=== PATIENT | male | born 1965 ===

== ENCOUNTER 2016-07-28 12:52 | Emergency (ER) | payer BC ==
[2016-07-28 13:24] VITALS: TEMP 97.9; O2SAT 98
[2016-07-28] MEDS ORDERED: Phenylephrine 0.5% Nasal Spray (15 ml) NS STA (13:25)
--- NOTE | 2016-07-28 13:33 | ED PDOC ---
Arrival/HPI - General Chief Complaint: ENT Problem Time Seen by Provider: 07/28/16 13:17 Historian: Patient - History of Present Illness Narrative History of Present Illness (Text): 07/28/16 13:32 Patient is a 50 year old male who presents to the emergency department with nose bleed since yesterday. Patient states he had a "cold" several days ago, now resolved. Denies trauma recently, but notes he was hit in nose by a soccer ball three weeks ago, denied bleeding at the time. No history of easy bruising or bleeding. No new medications or blood thinners. States he had a cough several days ago, now improved but occasional persistent cough. Denies chest pain or shortness of breath or hemoptysis. States he spontaneously developed nose bleed yesterday morning which resolved "after 15 minutes". States he again developed left nares bleeding this morning at 7 am and "it's been on and off since then". Denies lightheadedness or dizziness. 07/28/16 14:49 Time/Duration: < week Symptom Onset: Gradual Symptom Course: Unchanged Modifying Factors (Text): None Associated Symptoms (Text): None Past Medical History - Provider Review Nursing Documentation Reviewed: Yes - Infectious Disease Hx of Infectious Diseases: None - Cardiac Hx Hypertension: Yes - Genitourinary/Gynecological Hx Bladder Stone: Yes - Psychiatric Hx Substance Use: No - Surgical History Other/Comment: vasectomy 10 yrs ago - Anesthesia Hx Anesthesia: Yes Hx Anesthesia Reactions: No Hx Malignant Hyperthermia: No Family/Social History - Physician Review Nursing Documentation Reviewed: Yes Family/Social History: Unknown Family HX Smoking Status: Never Smoked Hx Alcohol Use: No Hx Substance Use: No Allergies/Home Meds Allergies/Adverse Reactions: Allergies No Known Allergies Allergy (Verified 07/28/16 13:24) Home Medications: Home Meds Medication Instructions Recorded Confirmed Bp Pill 07/28/16 Review of Systems - Review of Systems Constitutional: absent: Fevers Eyes: absent: Vision Changes ENT: Epistaxis. absent: Hearing Changes, Voice Changes, Sore Throat, Sinus Congestion Respiratory: Cough. absent: SOB, Sputum, Wheezing Cardiovascular: absent: Chest Pain, GAITAN Gastrointestinal: absent: Abdominal Pain, Hematochezia, Hematemesis Genitourinary Male: absent: Hematuria Skin: absent: Rash Neurological: absent: Headache, Dizziness Hemo/Lymphatic: absent: Easy Bleeding, Easy Bruising Physical Exam Vital Signs Reviewed: Yes Vital Signs Temp Pulse Resp BP Pulse Ox 07/28/16 14:11 97.9 F 53 L 16 135/93 H 98 07/28/16 13:19 97.9 F 59 L 20 134/94 H 98 Temperature: Afebrile Blood Pressure: Normal Pulse: Bradycardic Respiratory Rate: Normal Appearance: Positive for: Well-Appearing, Non-Toxic, Comfortable Pain Distress: None Mental Status: Positive for: Alert and Oriented X 3 - Systems Exam Head: Present: Atraumatic Pupils: Present: PERRL Extroacular Muscles: Present: EOMI Conjunctiva: No: Injected Ears: No: Erythema Mouth: Present: Moist Mucous Membranes Pharnyx: No: ERYTHEMA, EXUDATE, TONSILS ENLARGED, Peritonsilar Swelling, Uvular Deviation, Muffled/Hoarse Voice, Strider Nose (Internal): Present: Normal Inspection, Epistaxis, Other (dried blood to tissue present in left nares prior to arrival, no masses noted, friable Kesselbach's plexus, no heavy bleeding). No: Engorged, Edematous, Boggy, Rhinorrhea, Septal Deviation, Septal Hematoma Neck: No: Meningeal Signs Respiratory/Chest: Present: Clear to Auscultation. No: Respiratory Distress Cardiovascular: Present: Regular Rate and Rhythm Lower Extremity: No: Edema Neurological: Present: CN II-XII Intact, Motor Func Grossly Intact, Normal Sensory Function Skin: Present: Warm, Other (no petechiae) Psychiatric: Present: Alert Medical Decision Making ED Course and Treatment: Patient denies recent trauma. He is cardiovascularly stable. Very mild "oozing" noted without purulence or mass noted. Medications reviewed with patient. No recent trauma or deformity noted. No septal hematoma. Patient with no respiratory distress. Denies taking blood thinners. Cotton ball medication with neosyneprhine was inserted into left nares for 30 minutes. This was removed after 30 minutes and bleeding resolved. Area of friability cauterized with silver nitrate. Plan to discharge with follow-up with ENT. CXR ordered as history of cough, but no wheezing or respiratory distress, advised close follow-up of symptoms and reassessment if cough returns of persists, but no wheezing or hypoxia noted. 07/28/16 14:55 - Lab Interpretations Lab Results: 07/28/16 11:30 Lab Results 07/28/16 11:30: WBC 6.4, RBC 4.30, Hgb 13.9 L, Hct 39.7 L, MCV 92.3, MCH 32.3, MCHC 35.0, RDW 12.6, Plt Count 219, MPV 10.5, Gran % 61.6, Lymph % (Auto) 28.1, [place] % (Auto) 8.5 H, Eos % (Auto) 1.3 L, Baso % (Auto) 0.5, Gran # 3.93, Lymph # 1.8, [place] # 0.5, Eos # 0.1, Baso # 0.03 - RAD Interpretation Radiology Orders: 07/28/16 13:45 CHEST TWO VIEWS (PA/LAT) [RAD] Stat - Medication Orders Current Medication Orders: Discontinued Medications Phenylephrine HCl (Truman-Synephrine 0.5% Nasal [place]) 1 ml NS STAT STA Stop: 07/28/16 13:26 Last Admin: 07/28/16 15:00 Dose: 1 ml Silver Nitrate (Silver Nitrate Topical Stick) 1 swa TOP ONCE ONE Stop: 07/28/16 13:47 Last Admin: 07/28/16 15:00 Dose: 1 swa - Scribe Statement The provider has reviewed the documentation as recorded by the Richelle Bullock Provider Scribe Attestation: All medical record entries made by the Scribe were at my direction and personally dictated by me. I have reviewed the chart and agree that the record accurately reflects my personal performance of the history, physical exam, medical decision making, and the department course for this patient. I have also personally directed, reviewed, and agree with the discharge instructions and disposition. Disposition/Present on Arrival - Present on Arrival Any Indicators Present on Arrival: No History of DVT/PE: No History of Uncontrolled Diabetes: No Urinary Catheter: No History of Decub. Ulcer: No History Surgical Site Infection Following: None - Disposition Have Diagnosis and Disposition been Completed?: Yes Diagnosis: Epistaxis Disposition: HOME/ ROUTINE Disposition Time: 14:57 Patient Plan: Discharge Condition: GOOD Discharge Instructions (ExitCare): Nosebleed (ED) Additional Instructions: For any return of bleeding, any persistent bleeding, place direct pressure as instructed and get re-evaluated. Please follow-up with "ENT" physician for re-evaluation. For any return of persistence of cough, get re-evaluated. For any fever, swelling, shortness of breath, chest pain, dizziness, get rechecked immediately. Referrals: Lei Downey, [Staff Provider] - Follow up with primary
[2016-07-28] MEDS ORDERED: Silver Nitrate Topical - Stick TOP ONE (13:46)
[2016-07-28 14:12] VITALS: BP 135/93; PULSE 53; RESP 16
[2016-07-28 14:42] LABS: ADD MANUAL DIFF? NO
[2016-07-28 14:53] LABS: BASO # 0.03 K/mm3 (0.0-2.0); BASO % 0.5 % (0.0-3.0); EOS # 0.1 (0.0-0.7); EOS % 1.3 % (1.5-5.0); GRAN # 3.93 (1.4-6.5); GRAN % 61.6 % (50.0-68.0); HEMATOCRIT 39.7 % (42.0-52.0); LYMPH # 1.8 (1.2-3.4); LYMPH % 28.1 % (22.0-35.0); MEAN CELL VOLUME 92.3 fL (80.0-105.0); MEAN CORPUSCULAR HEMOGLOBIN 32.3 pg (25.0-35.0); MEAN PLATELET VOLUME 10.5 fl (7.0-11.0); MONO # 0.5 (0.1-0.6); MONO % 8.5 % (1.0-6.0); PLATELET COUNT 219 10^3/uL (120.0-450.0); RED CELL DISTRIBUTION WIDTH 12.6 % (11.5-14.5); WHITE BLOOD COUNT 6.4 10^3/ul (4.5-11.0)
--- NOTE | 2016-07-28 16:19 | RAD ---
HISTORY: cough for several days COMPARISON: No prior. TECHNIQUE: Chest PA and lateral FINDINGS: LUNGS: Poor inspiration with low lung volumes, bronchovascular markings and mild bibasilar atelectasis. PLEURA: No significant pleural effusion identified. No pneumothorax apparent. CARDIOVASCULAR: Normal. OSSEOUS STRUCTURES: No significant abnormalities. VISUALIZED UPPER ABDOMEN: Normal. OTHER FINDINGS: None. IMPRESSION: Poor inspiration with low lung volumes, bronchovascular markings and mild bibasilar atelectasis.
== END 2016-07-28 15:10 | disposition home or self-care (01) ==
LOC: ED 12:52
DX: R04.0 Epistaxis (principal); I10 Essential (primary) hypertension

== ENCOUNTER 2016-08-29 23:35 | Emergency (ER) | payer BC ==
[2016-08-29 23:38] VITALS: BMI 30.3
[2016-08-29 23:40] VITALS: TEMP 98.5
[2016-08-29] MEDS ORDERED: Sodium Chloride 0.9% 1,000 ML IV STA (23:59)
[2016-08-29] MEDS ORDERED: Morphine 4 mg/ml ISec IVP STA (23:59)
--- NOTE | 2016-08-30 00:08 | ED PDOC ---
Arrival/HPI - General Chief Complaint: Abdominal Pain Time Seen by Provider: 08/29/16 23:58 Historian: Patient - History of Present Illness Narrative History of Present Illness (Text): 08/30/16 00:05 Delano Chow is a 50year old male, with a history of renal colic, presents to the emergency department complaining of right sided flank pain associated with nausea since yesterday. States pain is similar in quality to previous renal colic symptoms. Took Oxycodone for pain for minimal relief. Denies any dysuria or hematuria . Denies any fever, chills, chest pain, shortness of breath, vomiting, diarrhea, abdominal pain, testicular swelling, penile discharge, or any other complaints at this time. Time/Duration: Other (since yesterday ) Symptom Onset: Gradual Symptom Course: Unchanged Activities at Onset: Light Past Medical History - Provider Review Nursing Documentation Reviewed: Yes - Infectious Disease Hx of Infectious Diseases: None - Cardiac Hx Cardiac Disorders: Yes Hx Hypertension: Yes - Pulmonary Hx Respiratory Disorders: No - Neurological Hx Neurological Disorder: No - HEENT Hx HEENT Disorder: No - Renal Hx Renal Disorder: Yes Hx Kidney Stones: Yes - Endocrine/Metabolic Hx Endocrine Disorders: No - Hematological/Oncological Hx Blood Disorders: No - Integumentary Hx Dermatological Disorder: No - Musculoskeletal/Rheumatological Hx Musculoskeletal Disorders: No - Gastrointestinal Hx Gastrointestinal Disorders: No - Genitourinary/Gynecological Hx Genitourinary Disorders: Yes Hx Bladder Stone: Yes - Psychiatric Hx Psychophysiologic Disorder: No Hx Substance Use: No - Surgical History Other/Comment: vasectomy 10 yrs ago - Anesthesia Hx Anesthesia: Yes Hx Anesthesia Reactions: No Hx Malignant Hyperthermia: No Family/Social History - Physician Review Nursing Documentation Reviewed: Yes Family/Social History: No Known Family HX Smoking Status: Never Smoked Hx Alcohol Use: No Hx Substance Use: No Allergies/Home Meds Allergies/Adverse Reactions: Allergies No Known Allergies Allergy (Verified 07/28/16 13:24) Home Medications: Home Meds Medication Instructions Recorded Confirmed Valsartan [Diovan] 160 mg PO DAILY 08/29/16 08/29/16 hydroCHLOROthiazide [Hydrodiuril] 25 mg PO DAILY 08/29/16 08/29/16 oxyCODONE/Acetaminophen [Percocet 1 tab PO Q6H PRN 08/29/16 08/29/16 5/325 mg Tab] Review of Systems - Physician Review All systems were reviewed & negative as marked: Yes - Review of Systems Constitutional: Normal. absent: Fatigue, Fevers Respiratory: Normal. absent: SOB, Cough, Sputum Cardiovascular: Normal. absent: Chest Pain, Palpitations Gastrointestinal: Nausea. absent: Abdominal Pain, Diarrhea, Vomiting Genitourinary Male: Normal. absent: Dysuria, Frequency, Hematuria Musculoskeletal: Back Pain (right flank pain ) Psychiatric: Normal Physical Exam - Physical Exam Narrative Physical Exam (Text): 08/30/16 02:24 Vital Signs Reviewed: Yes Vital Signs Temp Pulse Resp BP Pulse Ox 08/30/16 02:04 52 L 14 120/75 97 08/29/16 23:39 98.5 F 54 L 16 143/85 99 Temperature: Afebrile Blood Pressure: Normal Pulse: Regular Respiratory Rate: Normal Appearance: Positive for: Well-Appearing, Non-Toxic, Comfortable Pain Distress: None Mental Status: Positive for: Alert and Oriented X 3 - Systems Exam Head: Present: Atraumatic, Normocephalic Pupils: Present: PERRL Extroacular Muscles: Present: EOMI Conjunctiva: Present: Normal Mouth: Present: Moist Mucous Membranes Neck: Present: Normal Range of Motion Respiratory/Chest: Present: Clear to Auscultation, Good Air Exchange. No: Respiratory Distress Cardiovascular: Present: Regular Rate and Rhythm, Normal S1, S2. No: Murmurs Abdomen: Present: Tenderness (scant RLQ). No: Distention, Rebound, Guarding Back: Present: CVA Tenderness (right CVA tenderness ). No: Midline Tenderness, Paraspinal Tenderness Upper Extremity: Present: Normal Inspection Lower Extremity: Present: Normal Inspection Neurological: Present: GCS=15, CN II-XII Intact, Speech Normal Skin: Present: Warm, Dry, Normal Color. No: Rashes Psychiatric: Present: Alert, Oriented x 3, Normal Insight, Normal Concentration Medical Decision Making ED Course and Treatment: 08/30/16 00:10 Impression: A 50 year old male who presents to the emergency department complaining of right sided CVA pain since earlier today Differential Diagnosis include but are not limited to: nephrolithiasis. Plan: -- CT abdomen pelvis -- Labs -- Toradol -- Morphine -- Zofran -- IV fludis -- Urine culture -- Urinalysis -- Reassess and disposition Progress Notes: 08/30/16 01:23 CT abdomen pelvis results reviewed: Kidneys and ureters: Punctate nonobstructing right renal calculus. There is a left renal cyst measuring up to 3.2 cm. Mild right perinephric stranding and mild right hydronephrosis with hydroureter and periureteral edema which extends to a distal right ureteral calculus adjacent to the UVJ measuring 3 mm. IMPRESSION: 1. 3 mm distal right ureteral calculus adjacent to the UVJ with secondary obstructive uropathy of the right upper tract. 2. Punctate nonobstructing right renal calculus. 3. Mild bibasilar atelectasis or scar, greatest in the lower lobes 08/30/16 02:06 Patient has normal vitals, normal wbc, normal creatinine and ua is negative for leukocytes or nitrates. He reports that pain is under control and he is tolerating po. He is already on flomax. He reports that he has enough pain medication at home from previous renal colic and does not need refill. He reports that will call his urologist Dr. Page/Sara in the morning. - Lab Interpretations Lab Results: 08/30/16 00:28 08/30/16 00:28 Lab Results 08/30/16 00:43: Urine Color Yellow, Urine Appearance Sl cloudy, Urine pH 6.5, Ur Specific [place] 1.015, Urine Protein Negative, Urine Glucose (UA) Negative, Urine Ketones 15 H, Urine Blood Moderate H, Urine Nitrate Negative, Urine Bilirubin Negative, Urine Urobilinogen 0.2, Ur Leukocyte Esterase Negative, Urine RBC 5 - 10, Urine WBC 0 - 2, Ur Epithelial Cells 0 - 2, Urine Bacteria Rare 08/30/16 00:28: Sodium 139, Potassium 3.8, Chloride 101, Carbon Dioxide 31, Anion Gap 11, BUN 24 H, Creatinine 1.3, Est GFR ( Amer) > 60, Est GFR ( Non-Af Amer) 58, Random Glucose 101, Calcium 9.5, Total Bilirubin 0.7, AST 42, ALT 47, Alkaline Phosphatase 50, Total Protein 7.3, Albumin 4.2, Globulin 3.2, Albumin/Globulin Ratio 1.3, Lipase 74 08/30/16 00:28: WBC 8.2 D, RBC 4.06, Hgb 13.3 L, Hct 38.8 L, MCV 95.6, MCH 32.8 , MCHC 34.3, RDW 12.5, Plt Count 223, MPV 11.5 H, Gran % 67.0, Lymph % (Auto) 22.9, [place] % (Auto) 8.1 H, Eos % (Auto) 1.8, Baso % (Auto) 0.2, Gran # 5.47, Lymph # 1.9, [place] # 0.7 H, Eos # 0.2, Baso # 0.02 - RAD Interpretation Narrative RAD Interpretations (Text): EXAM: CT Abdomen and Pelvis Without Intravenous Contrast FINDINGS: Lower thorax: Mild bibasilar atelectasis or scar, greatest in the lower lobes. ABDOMEN: Liver: Unremarkable. Gallbladder and bile ducts: Unremarkable. No calcified stones. No ductal dilation. Pancreas: Unremarkable. No ductal dilation. Spleen: Unremarkable. No splenomegaly. Adrenals: Unremarkable. No mass. Kidneys and ureters: Punctate nonobstructing right renal calculus. There is a left renal cyst measuring up to 3.2 cm. Mild right perinephric stranding and mild right hydronephrosis with hydroureter and periureteral edema which extends to a distal right ureteral calculus adjacent to the UVJ measuring 3 mm. Stomach and bowel: Unremarkable. No obstruction. No mucosal thickening. Appendix: A normal appendix is seen. PELVIS: Bladder: Unremarkable. No stones. Reproductive: Unremarkable as visualized. ABDOMEN and PELVIS: Intraperitoneal space: Unremarkable. No free air. No significant fluid collection. Bones/joints: Bridging osteophytes across the anterior right SI joint. No acute fracture. No dislocation. Soft tissues: Unremarkable. Vasculature: Unremarkable. No abdominal aortic aneurysm. Lymph nodes: Unremarkable. No enlarged lymph nodes. IMPRESSION: 1. 3 mm distal right ureteral calculus adjacent to the UVJ with secondary obstructive uropathy of the right upper tract. 2. Punctate nonobstructing right renal calculus. 3. Mild bibasilar atelectasis or scar, greatest in the lower lobes Radiology Orders: 08/29/16 23:58 ABD & PELVIS W/O PO OR IV CONT [CT] Stat Production Or Plant Engineer: Radiologist - Medication Orders Current Medication Orders: Discontinued Medications Sodium Chloride (Sodium Chloride 0.9%) 1,000 mls @ 999 mls/hr IV .Q1H1M STA Stop: 08/30/16 00:59 Last Admin: 08/30/16 00:29 Dose: 999 mls/hr Ketorolac Tromethamine (Toradol) 30 mg IVP STAT STA Stop: 08/30/16 00:00 Last Admin: 08/30/16 00:29 Dose: 30 mg Morphine Sulfate (Morphine) 4 mg IVP STAT STA Stop: 08/30/16 00:00 Last Admin: 08/30/16 00:30 Dose: 4 mg Ondansetron HCl (Zofran Inj) 4 mg IVP STAT STA Stop: 08/30/16 00:00 Last Admin: 08/30/16 00:30 Dose: 4 mg Disposition/Present on Arrival - Present on Arrival Any Indicators Present on Arrival: No History of DVT/PE: No History of Uncontrolled Diabetes: No Urinary Catheter: No History of Decub. Ulcer: No History Surgical Site Infection Following: None - Disposition Have Diagnosis and Disposition been Completed?: Yes Diagnosis: Renal colic Disposition: HOME/ ROUTINE Disposition Time: 02:08 Patient Plan: Discharge Condition: GOOD Discharge Instructions (ExitCare): Kidney Stones (ED) Additional Instructions: Call your urologist in the morning. Return to ED if condition worsens. Continue to take flomax. Take pain medication as needed. Referrals: Yamil Ruiz MD [Staff Provider] - Follow up with primary
[2016-08-30 00:34] LABS: ADD MANUAL DIFF? NO
[2016-08-30 01:14] LABS: PH,URINE 6.5 (4.7-8.0); URINE BILIRUBIN NEGATIVE (NEGATIVE); URINE BLOOD MODERATE (NEGATIVE); URINE GLUCOSE (UA) NEGATIVE (NEGATIVE); URINE KETONE 15 mg/dL (NEGATIVE); URINE LEUKOCYTE ESTERASE NEGATIVE Leu/uL (NEGATIVE); URINE PROTEIN NEGATIVE mg/dL (<30 mg/dL); URINE UROBILINOGEN 0.2 E.U./dL (<1 E.U./dL)
[2016-08-30 01:30] LABS: URINE APPEARANCE SL CLOUDY (CLEAR); URINE COLOR YELLOW (YELLOW)
[2016-08-30 01:35] LABS: URINE BACTERIA RARE (NEG); URINE EPITHELIAL CELLS 0 - 2 /hpf (0-5); URINE WBC 0 - 2 /hpf (0-6)
[2016-08-30 01:39] LABS: ALB/GLOB RATIO 1.3 (1.1-1.8); ALKALINE PHOSPHATASE 50 U/L (38-133); ALT/SGPT 47 U/L (7-56); AST/SGOT 42 U/L (15-59); BILIRUBIN,TOTAL 0.7 mg/dL (0.2-1.3); BLOOD UREA NITROGEN 24 mg/dL (7-21); CALCIUM 9.5 mg/dL (8.4-10.5); CARBON DIOXIDE 31 mmol/L (21-33); CHLORIDE 101 mmol/L (98-107); GFR AFRICAN-AMERICAN > 60; GLUCOSE,RANDOM 101 mg/dL (70-110); LIPASE 74 U/L (23-300); POTASSIUM 3.8 mmol/L (3.6-5.0); SODIUM 139 mmol/L (132-148); TOTAL PROTEIN 7.3 g/dL (5.8-8.3)
[2016-08-30 01:55] LABS: BASO # 0.02 K/mm3 (0.0-2.0); BASO % 0.2 % (0.0-3.0); EOS # 0.2 (0.0-0.7); EOS % 1.8 % (1.5-5.0); GRAN # 5.47 (1.4-6.5); HEMATOCRIT 38.8 % (42.0-52.0); LYMPH # 1.9 (1.2-3.4); LYMPH % 22.9 % (22.0-35.0); MEAN CELL VOLUME 95.6 fL (80.0-105.0); MEAN CORPUSCULAR HEMOGLOBIN 32.8 pg (25.0-35.0); MEAN CORPUSCULAR HGB CONC 34.3 g/dl (31.0-37.0); MEAN PLATELET VOLUME 11.5 fl (7.0-11.0); MONO # 0.7 (0.1-0.6); MONO % 8.1 % (1.0-6.0); PLATELET COUNT 223 10^3/uL (120.0-450.0); RED CELL DISTRIBUTION WIDTH 12.5 % (11.5-14.5); WHITE BLOOD COUNT 8.2 10^3/ul (4.5-11.0)
[2016-08-30 02:04] VITALS: BP 120/75; PULSE 52; RESP 14; O2SAT 97
--- NOTE | 2016-08-30 08:16 | CT ---
PROCEDURE: CT Abdomen and Pelvis without Oral or IV contrast. HISTORY: R sided flank pain COMPARISON: None available TECHNIQUE: Contiguous axial images of the abdomen and pelvis. No oral or IV contrast administered. Coronal and Sagittal reformats generated and reviewed. Radiation dose: Total exam DLP = 1188.64 MGy-cm. This CT exam was performed using one or more of the following dose reduction techniques: Automated exposure control, adjustment of the mA and/or kV according to patient size, and/or use of iterative reconstruction technique. FINDINGS: There is limited evaluation of the solid organs without the administration of IV contrast. LOWER THORAX: Mild bibasilar atelectasis. No visible pleural effusion or pneumothorax. LIVER: Unremarkable unenhanced appearance. GALLBLADDER AND BILE DUCTS: Unremarkable unenhanced appearance. PANCREAS: Fatty atrophy. SPLEEN: Unremarkable unenhanced appearance. ADRENALS: Unremarkable unenhanced appearance. KIDNEYS AND URETERS: 4 mm distal right ureteral calculus with proximal hydroureteronephrosis. Additional punctate nonobstructing right renal calculus. 2.2 cm and 3.3 cm low-density renal lesions consistent with cysts. BLADDER: Under distention of the urinary bladder limits evaluation. REPRODUCTIVE: Unremarkable. APPENDIX: The appendix appears within normal limits of caliber. No secondary signs of acute appendicitis. BOWEL: The stomach is nondistended. Lack of oral contrast limits evaluation for bowel pathology. The bowel loops appear within normal limits of caliber without evidence of intestinal obstruction. PERITONEUM: No significant free fluid. No definite free air. LYMPH NODES: No bulky lymphadenopathy identified. VASCULATURE: No aortic aneurysm. BONES: Bridging osteophyte, anterior right SI joint. OTHER FINDINGS: 18 mm fat containing umbilical hernia. Bilateral fat containing inguinal hernias. IMPRESSION: 4 mm distal right ureteral calculus with proximal hydroureteronephrosis. Additional punctate nonobstructing right renal calculus. 2.2 cm and 3.3 cm low-density renal lesions consistent with cysts. Mild bibasilar atelectasis. Preliminary impression was provided by virtual radiologic.
== END 2016-08-30 02:23 | disposition home or self-care (01) ==
LOC: ED 23:35
DX: N20.0 Calculus of kidney (principal); Z87.442 Personal history of urinary calculi; I10 Essential (primary) hypertension
CPT/HCPCS: 74176; 80053; 81001; 83690; 85025; 87086; 96361; 96374; 96375; 99283; J1885; J2270; J2405; J7040